=== PATIENT | female | born 1960 | race Two or more races ===

== ENCOUNTER → 2022-01-09 12:38 | Outpatient (BNVA) | payer OTHER, SELFPAY | PROVIDERS: Visit Provider Nurse Practitioner Family | DX: M47.27 Other spondylosis with radiculopathy, lumbosacral region (principal); M53.3 Sacrococcygeal disorders, not elsewhere classified | CPT/HCPCS: 99202 ==

== ENCOUNTER 2022-01-30 12:40 | Outpatient (REF) | payer OTHER, SELFPAY ==
--- NOTE | ~2022-01-30 | MR_ITS ---
EXAMINATION: MR LUMBAR SPINE WITHOUT CONTRAST CLINICAL INFORMATION: Spondylosis with radiculopathy. COMPARISON: None available. TECHNIQUE: MRI of the lumbar spine was obtained using routine sequences without contrast. FINDINGS: Mild degenerative grade 1 anterolisthesis of L3 on L4. Otherwise, normal anatomic alignment. Advanced degenerative disc disease at L4-L5. Moderate degenerative disc disease at L2-L3 and L3-L4. Mild degenerative disc disease at all additional levels. Associated mixed Modic type discogenic endplate changes including mild Modic type I discogenic edema at L2-L3 and L4-L5. No additional suspicious marrow edema. The vertebral body heights are largely maintained. The conus medullaris terminates at the level of L1. The distal spinal cord is normal in appearance. Right-sided hemilaminotomy changes at L4-L5. No additional significant abnormalities of the paraspinal musculature. There is a 0.9 cm T2 hyperintense renal cyst in the right kidney. Otherwise, limited evaluation of the intra-abdominal structures without significant abnormalities. The abdominal aorta is of normal contour and caliber. AXIAL SPINAL LEVELS: L1-L2: Shallow diffuse disc bulge. There is moderate bilateral facet joint arthropathy. There is no neural foraminal stenosis. There is no spinal canal stenosis. L2-L3: Mild diffuse disc bulge. There is moderate bilateral facet joint arthropathy. There is mild right and no left neural foraminal stenosis. There is mild narrowing of the right subarticular zone with no overt spinal canal stenosis centrally. L3-L4: Moderate diffuse disc bulge exacerbated by uncovering from anterolisthesis. There is moderate bilateral facet joint arthropathy. There is mild bilateral neural foraminal stenosis. There is narrowing of the subarticular zones with minimal narrowing of the spinal canal centrally. L4-L5: Moderate diffuse disc bulge with posterior osseous ridging. Right-sided hemilaminotomy changes. There is moderate left and mild right facet joint arthropathy. There is moderate left worse than right neural foraminal stenosis. There is stenosis of the subarticular zones with no overt spinal canal stenosis centrally. L5-S1: Mild diffuse disc bulge. There is mild to moderate bilateral facet joint arthropathy. There is no neural foraminal stenosis. There is no spinal canal stenosis. MR/MR lumbar spine wo con IMPRESSION: Moderate multilevel degenerative spondyloarthropathy of the lumbar spine as described in detail above. Most notably, there are narrowings of the subarticular zones at from L2-L5. Moderate neural foraminal stenoses at L4-L5. No overt spinal canal stenosis centrally.
== END 2022-01-30 12:41 | disposition home or self-care (01) ==
LOC: HO.MRI 12:40
PROVIDERS: Visit Provider Nurse Practitioner Family
DX: M47.27 Other spondylosis with radiculopathy, lumbosacral region (principal)
CPT/HCPCS: 72148

== ENCOUNTER → 2022-02-27 12:39 | Outpatient (BNVA) | payer OTHER, SELFPAY | PROVIDERS: Visit Provider Nurse Practitioner Family | DX: M53.3 Sacrococcygeal disorders, not elsewhere classified (principal); M47.816 Spondylosis without myelopathy or radiculopathy, lumbar region; M51.37 Other intervertebral disc degeneration, lumbosacral region | CPT/HCPCS: 99212 ==

== ENCOUNTER 2022-04-17 06:09 | Outpatient (REF) | payer OTHER, SELFPAY ==
--- NOTE | ~2022-04-17 | FL_ITS ---
EXAMINATION: XR FLUOROSCOPY WITH IMAGES CLINICAL INFORMATION: M47.816 - Spondylosis without myelopathy or radiculopathy. COMPARISON: MR lumbar spine 01/30/2022 TECHNIQUE: Fluoroscopy performed by Dr. Delano Aquino. Fluoroscopy time: 0.3 minutes DAP: 1.52 Gycm2 Images: 3 FINDINGS: There are spinal needles overlying the bilateral outer L3, L4, and L5 neural foramen. There is contrast seen in the respective nerve sheaths. Some early transforaminal epidural extension is suggested. No visible vascular communication. There are degenerative changes with multilevel vertebral spurring and disc narrowing L4-L5. There may be transitional vertebrae at L5 with partial right hemisacralization. FL/FL guidance in treatment room IMPRESSION: Fluoroscopy for pain management procedures.
== END 2022-04-17 06:10 | disposition home or self-care (01) ==
LOC: HO.RADIR 06:09
PROVIDERS: Visit Provider Internal Medicine
DX: M47.816 Spondylosis without myelopathy or radiculopathy, lumbar region (principal); M51.37 Other intervertebral disc degeneration, lumbosacral region
CPT/HCPCS: 64493; 64494; J2795; Q9967

== ENCOUNTER → 2022-04-19 11:55 | Outpatient (BNVA) | payer OTHER, SELFPAY | PROVIDERS: Visit Provider Nurse Practitioner Family | DX: Z13.89 Encounter for screening for other disorder (principal) ==

== ENCOUNTER 2022-07-03 10:00 | Day surgery (SDC) | payer OTHER, SELFPAY ==
--- NOTE | ~2022-07-03 | FL_ITS ---
EXAMINATION: XR FLUOROSCOPY WITH IMAGES CLINICAL INFORMATION: Spondylosis. Pain management COMPARISON: MR lumbar spine 01/30/2022 TECHNIQUE: Fluoroscopy performed by Dr. Delano Aquino. Fluoroscopy time: 0.1 minutes. Cumulative Dose: 1.36 mGy. DAP: 0.195 Gy-cm2. Images: 1. FINDINGS: There is a spinal needle with tip overlying the mid right L4 foramen. There is disc narrowing L4-L5. Multilevel mild lumbar vertebral spurring. FL/FL guidance in OR IMPRESSION: Fluoroscopy for pain management procedures.
[2022-07-03 12:17] VITALS: BMI 19.0
[2022-07-03 12:18] VITALS: BP 123/65; PULSE 77; RESP 16; TEMP 36.2; O2SAT 96
--- NOTE | 2022-07-03 12:22 | PC.NURSE ---
per Dr. Aquino Cefazolin 2gm IV is not needed for this procedure.
[2022-07-03 12:56] VITALS: PULSE 65; RESP 20; TEMP 36.8; O2SAT 100
--- NOTE | 2022-07-03 13:16 | MHC.SHP ---
Pre-Procedural Eval Section A Date of Service: 07/03/22 The patient is an INPATIENT: No The History & Physical has been completed within 30 days and I have reviewed it.: Yes Section B Chief Complaint: Lumbar spondylosis, chronic pain syndrome Relevant Family History (Specify if Yes): No Relevant Social History: None Present Medications: None Medical History: No relevant PMH History of Previous Operations: Relevant previous surgery/procedure and date(s) (L4/5 discectomy) Allergies: Allergies Allergy/AdvReac Type Severity Reaction Status Date / Time No Known Allergies Allergy Verified 04/17/22 09:47 Review of Systems Sugical H&P ROS: Negative: Constitution, Cardiovascular and Respiratory Exam Surgical H&P Exam: Normal: HEENT, Normal: Heart and Normal: Lungs Plan Diagnosis/Plan: Unchanged I have reviewed the history and physical and performed a pertinent physical examination on my patient. No changes have occurred unless specified.
--- NOTE | 2022-07-03 13:17 | P.BOP_ITS ---
Brief Operative Note Date of Service: 07/03/22 Pre-op diagnosis: Lumbar spondylosis, chronic pain syndrome Post-op diagnosis: same Procedure: Lumbar L3 medial branch peripheral nerve stimulator trial, right Implants: Sprint temporary PNS system Surgeon: Delano Aquino MD Anesthesia: local Was an Raw Hide Trimmer used for this Procedure?: No Estimated blood loss (mL): 2 Pathology: none sent Condition: stable Disposition: same day
--- NOTE | 2022-07-03 13:18 | W.PM.OPN ---
Operative Note Operative Note Date of Service: 07/03/22 Narrative: Lumbar Medial Branch Nerve Stimulation Lead Placement, SPR (Sprint) System, Right L3 ? After the risks, benefits and alternatives were discussed with the patient and informed consent was obtained, patient was placed in the prone position and padded to foster comfort. The skin overlying the lumbosacral spine was prepped and draped in sterile fashion. Fluoroscopy was used to identify the spinous process and lamina in the center of the patient?s region of pain. After identifying and marking the intended target along the course of the medial branch nerve, the skin around the planned entry point and the subcutaneous tissues were injected with lidocaine 1%. An introducer needle and stimulating probe were assembled, inserted and advanced along the intended course of the medial branch nerve as it traverses the lamina medial and inferior to the zygapophyseal joint, taking care to maintain the proper depth of insertion as the introducer is advanced under fluoroscopic guidance. The introducer needle was delivered to a location in proximity to the nerve. Multiple stimulation parameters were used to deliver stimulation to the target medial branch nerve in concert with stimulating at multiple positions around the nerve. Nerve target acquisition was confirmed noting generation of paresthesias in the paravertebral regions corresponding to the level being stimulated. Various electrical parameter combinations were tested, and the lead location was adjusted (physically relocated) until the patient indicated paresthesia/muscle tension overlapping the distribution of the patient?s typical region of pain. The stimulating probe was removed from the introducer and a percutaneous lead was guided through the needle and delivered to a location in similar proximity to the nerve. Final location was verified with electrical stimulation and documented with fluoroscopy. The introducer needle was removed, and the exposed end of the percutaneous lead was attached to an external stimulator unit. Various electrical parameter combinations were again tested until the patient indicated paresthesia or muscle tension overlapping the distribution of the patient?s typical region of pain. After confirming that lead impedance was in the normal range, the external unit was detached, the needle was removed, and the lead was anchored at the skin. The lead was threaded into the connector block and electrical continuity and desired patient response was confirmed. The connector block was attached to the external stimulator unit. The site was covered with a sterile occlusive dressing. The patient was observed for stability of vital signs and comfort.
== END 2022-07-03 13:16 | disposition home or self-care (01) ==
PROVIDERS: PCP Internal Medicine; Visit Provider Internal Medicine
PROC: (CPT 64555; principal; 2022-07-03 11:00)
DX: M47.816 Spondylosis without myelopathy or radiculopathy, lumbar region (principal); G89.4 Chronic pain syndrome; M54.50 Low back pain, unspecified; M53.86 Other specified dorsopathies, lumbar region; N18.30 Chronic kidney disease, stage 3 unspecified; Z98.890 Other specified postprocedural states
CPT/HCPCS: 64555; C1778; J2795

== ENCOUNTER → 2022-07-12 08:27 | Outpatient (BNVA) | payer OTHER, SELFPAY | PROVIDERS: PCP Internal Medicine; Visit Provider Internal Medicine | DX: M47.816 Spondylosis without myelopathy or radiculopathy, lumbar region (principal) | CPT/HCPCS: 99212 ==

== ENCOUNTER → 2022-08-16 08:51 | Outpatient (BNVA) | payer OTHER, SELFPAY | PROVIDERS: PCP Internal Medicine; Visit Provider Internal Medicine | DX: M47.816 Spondylosis without myelopathy or radiculopathy, lumbar region (principal); M51.37 Other intervertebral disc degeneration, lumbosacral region | CPT/HCPCS: 99212 ==

== ENCOUNTER → 2022-08-30 08:19 | Outpatient (BNVA) | payer OTHER, SELFPAY | PROVIDERS: PCP Internal Medicine; Visit Provider Internal Medicine | DX: M47.816 Spondylosis without myelopathy or radiculopathy, lumbar region (principal) | CPT/HCPCS: 99212 ==

== ENCOUNTER 2022-09-04 10:05 | Day surgery (SDC) | payer OTHER, SELFPAY ==
--- NOTE | ~2022-09-04 | FL_ITS ---
EXAMINATION: XR FLUOROSCOPY WITH IMAGES CLINICAL INFORMATION: Peripheral nerve stimulator trial COMPARISON: MR lumbar spine 01/30/2022 TECHNIQUE: Fluoroscopy performed by Dr. Delano Aquino. Fluoroscopy time: 0.1. Cumulative Dose: 1.24 mGy. DAP: 0.243 Gycm2. Images: 1. FINDINGS: There is a stimulator electrode overlying the left side of the L4-S1 vertebrae. There are degenerative changes with disc narrowing L4-L5 and vertebral spurring. FL/FL guidance in OR IMPRESSION: Fluoroscopy for pain management procedure.
[2022-09-04 11:12] VITALS: BMI 23.7
[2022-09-04 11:30] VITALS: BP 133/66; PULSE 63; TEMP 36.4; O2SAT 99
[2022-09-04 12:31] VITALS: BP 130/61; PULSE 69; RESP 16; TEMP 36.6; O2SAT 99
--- NOTE | 2022-09-04 13:37 | MHC.SHP ---
Pre-Procedural Eval Section A Date of Service: 09/04/22 The patient is an INPATIENT: No Changes since office visit: Yes Patient answered all questions The History & Physical has been completed within 30 days and I have reviewed it.: Yes Section B Chief Complaint: Lumbar spondylosis, chronic low back pain Relevant Family History (Specify if Yes): No Relevant Social History: None Present Medications: see Short Stay Collaborative assessment Medical History: No relevant PMH History of Previous Operations: No relevant previous surgery Allergies: Allergies Allergy/AdvReac Type Severity Reaction Status Date / Time No Known Allergies Allergy Verified 08/30/22 08:31 Review of Systems Sugical H&P ROS: Negative: Constitution, Cardiovascular and Respiratory Exam Surgical H&P Exam: Normal: HEENT, Normal: Heart and Normal: Lungs Plan Diagnosis/Plan: Unchanged I have reviewed the history and physical and performed a pertinent physical examination on my patient. No changes have occurred unless specified.
--- NOTE | 2022-09-04 13:38 | PM.OP ---
Brief Operative Note Date of Service: 09/04/22 Pre-op diagnosis: Lumbar spondylosis, chronic left low back pain Post-op diagnosis: same Procedure: Temporary left L3 medial branch nerve stimulator placement Implants: SPR temporary PNS system Surgeon: Delano Aquino MD Anesthesia: local Was an Warehouse Distribution Associate used for this Procedure?: No Estimated blood loss (mL): 2 Pathology: none sent Condition: stable Disposition: same day
--- NOTE | 2022-09-04 13:39 | W.PM.OPN ---
Operative Note Operative Note Date of Service: 09/04/22 Narrative: Lumbar Medial Branch Nerve Stimulation Lead Placement, SPR (Sprint) System, LEFT L3 ? After the risks, benefits and alternatives were discussed with the patient and informed consent was obtained, patient was placed in the prone position and padded to foster comfort. The skin overlying the lumbosacral spine was prepped and draped in sterile fashion. Fluoroscopy was used to identify the spinous process and lamina in the center of the patient?s region of pain. After identifying and marking the intended target along the course of the L3 medial branch nerve, the skin around the planned entry point and the subcutaneous tissues were injected with lidocaine 1%. An introducer needle and stimulating probe were assembled, inserted and advanced along the intended course of the medial branch nerve as it traverses the lamina medial and inferior to the zygapophyseal joint, taking care to maintain the proper depth of insertion as the introducer was advanced under fluoroscopic guidance. The introducer needle was delivered to a location in proximity to the nerve. Multiple stimulation parameters were used to deliver stimulation to the target medial branch nerve in concert with stimulating at multiple positions around the nerve. Nerve target acquisition was confirmed noting generation of paresthesias in the paravertebral regions corresponding to the level being stimulated. Various electrical parameter combinations were tested, and the lead location was adjusted (physically relocated) until the patient indicated paresthesia/muscle tension overlapping the distribution of the patient?s typical region of pain. The stimulating probe was removed from the introducer and a percutaneous lead was guided through the needle and delivered to a location in similar proximity to the nerve. Final location was verified with electrical stimulation and documented with fluoroscopy. The introducer needle was removed, and the exposed end of the percutaneous lead was attached to an external stimulator unit. Various electrical parameter combinations were again tested until the patient indicated paresthesia or muscle tension overlapping the distribution of the patient?s typical region of pain. After confirming that lead impedance was in the normal range, the external unit was detached, the needle was removed, and the lead was anchored at the skin. The lead was threaded into the connector block and electrical continuity and desired patient response was confirmed. The connector block was attached to the external stimulator unit. The site was covered with a sterile occlusive dressing. The patient was observed for stability of vital signs and comfort.
== END 2022-09-04 12:41 | disposition home or self-care (01) ==
PROVIDERS: PCP Internal Medicine; Visit Provider Internal Medicine
PROC: (CPT 64555; principal; 2022-09-04 11:20)
DX: M47.816 Spondylosis without myelopathy or radiculopathy, lumbar region (principal); G89.29 Other chronic pain; M51.26 Other intervertebral disc displacement, lumbar region; M19.90 Unspecified osteoarthritis, unspecified site; F32.A Depression, unspecified; N18.30 Chronic kidney disease, stage 3 unspecified; E78.00 Pure hypercholesterolemia, unspecified; J30.2 Other seasonal allergic rhinitis; F17.210 Nicotine dependence, cigarettes, uncomplicated; Z79.899 Other long term (current) drug therapy
CPT/HCPCS: 64555; C1778; J2795

== ENCOUNTER → 2022-09-13 08:35 | Outpatient (BNVA) | payer OTHER, SELFPAY | PROVIDERS: PCP Internal Medicine; Visit Provider Internal Medicine | DX: M53.3 Sacrococcygeal disorders, not elsewhere classified (principal); M47.816 Spondylosis without myelopathy or radiculopathy, lumbar region | CPT/HCPCS: 99212 ==

== ENCOUNTER → 2022-10-11 08:27 | Outpatient (BNVA) | payer OTHER, SELFPAY | PROVIDERS: PCP Internal Medicine; Visit Provider Nurse Practitioner Family | DX: Z48.00 Encounter for change or removal of nonsurgical wound dressing (principal); M53.3 Sacrococcygeal disorders, not elsewhere classified; M47.816 Spondylosis without myelopathy or radiculopathy, lumbar region | CPT/HCPCS: 99212 ==

== ENCOUNTER → 2022-10-22 13:11 | Outpatient (BNVA) | payer OTHER, SELFPAY | PROVIDERS: PCP Internal Medicine; Visit Provider Nurse Practitioner Family | DX: M53.3 Sacrococcygeal disorders, not elsewhere classified (principal); M47.816 Spondylosis without myelopathy or radiculopathy, lumbar region; M51.37 Other intervertebral disc degeneration, lumbosacral region; Z98.890 Other specified postprocedural states | CPT/HCPCS: 99212 ==

== ENCOUNTER → 2022-11-08 09:08 | Outpatient (BNVA) | payer OTHER, SELFPAY | PROVIDERS: PCP Internal Medicine; Visit Provider Internal Medicine | DX: M47.816 Spondylosis without myelopathy or radiculopathy, lumbar region (principal); Z98.890 Other specified postprocedural states | CPT/HCPCS: 99212 ==

== ENCOUNTER → 2023-01-31 10:48 | Outpatient (BNVA) | payer OTHER, SELFPAY | PROVIDERS: PCP Internal Medicine; Visit Provider Internal Medicine | DX: M47.816 Spondylosis without myelopathy or radiculopathy, lumbar region (principal); M53.3 Sacrococcygeal disorders, not elsewhere classified; M47.27 Other spondylosis with radiculopathy, lumbosacral region; M51.37 Other intervertebral disc degeneration, lumbosacral region; M54.50 Low back pain, unspecified | CPT/HCPCS: 20553; 99212 ==

== ENCOUNTER → 2023-02-24 12:54 | Outpatient (BNVA) | payer OTHER, SELFPAY | PROVIDERS: PCP Internal Medicine; Visit Provider Internal Medicine | DX: M53.3 Sacrococcygeal disorders, not elsewhere classified (principal); M25.559 Pain in unspecified hip | CPT/HCPCS: 99212 ==